=== PATIENT | female | born 2000 | race Caucasian/White ===

== ENCOUNTER 2022-09-12 08:24 | Emergency (ER) | payer OTHER ==
[~2022-09-12] VITALS: Ht 144.8 cm; Wt 77.3 kg
[2022-09-12 11:15] VITALS: BP 122/71
== END 2022-09-12 11:22 | disposition home or self-care (01) ==
LOC: EMS 08:34
DX: M25.571 Pain in right ankle and joints of right foot (principal)
CPT/HCPCS: 99283